=== PATIENT | female | born 1940 | race Caucasian/White ===

== ENCOUNTER 2017-03-22 10:28 | Emergency (ER) | payer MEDICARE, BC ==
[2017-03-22] MEDS ORDERED: SODIUM CHLORIDE 0.9% 1,000 ML IV STA (11:09)
--- NOTE | 2017-03-22 11:11 | ED ---
Chest Pain HPI - General Chief Complaint: Chest Pain Stated Complaint: chest pain Time Seen by Provider: 03/22/17 10:50 Source: patient, RN notes reviewed Mode of arrival: ambulatory Limitations: language barrier - History of Present Illness Initial Comments: This is a 76-year-old female who has a history of pneumonia but no history of heart or lung disease that she is aware of who presents today with complaints of about 2 weeks of intermittent left-sided chest pain. She had pain last night there was sharp and radiated to her left neck with some nausea at this time she has no pain other than over her left chest wall she denies any cough fevers chills sweats MD Complaint: chest pain - Related Data Previous Rx's Medication Instructions Recorded Levofloxacin [Levaquin] 750 mg PO DAILY #7 tab 11/29/15 Metoprolol Tartrate 25 mg PO BID #60 tab 11/29/15 Ibuprofen [Motrin] 600 mg PO Q6HR PRN #20 tab 03/22/17 Allergies Allergy/AdvReac Type Severity Reaction Status Date / Time No Known Allergies Allergy Verified 03/22/17 10:35 Review of Systems ROS Statement: Those systems with pertinent positive or pertinent negative responses have been documented in the HPI. ROS Other: All systems not noted in ROS Statement are negative. EKG Findings - EKG Results: EKG: interpreted by GINETTE, sinus rhythm (Sinus rhythm of 82. Interval 154 QRS duration 128 daily since QTC of 412/41Bundle-branch block old septal changes) Past Medical History Past Medical History: Hearing Disorder / Deafness History of Any Multi-Drug Resistant Organisms: None Reported Additional Past Surgical History / Comment(s): "STOMACH SURGERY" Past Psychological History: Anxiety Smoking Status: Never smoker Past Alcohol Use History: None Reported Past Drug Use History: None Reported General Exam - General Exam Comments Initial Comments: This is a well-developed well-nourished awake alert oriented 3 female she is hard of hearing. Limitations: language barrier General appearance: alert, in no apparent distress Head exam: Present: atraumatic, normocephalic, normal inspection Eye exam: Present: normal appearance, PERRL, EOMI. Absent: scleral icterus, conjunctival injection, periorbital swelling ENT exam: Present: normal exam, mucous membranes moist Neck exam: Present: normal inspection. Absent: tenderness, meningismus, lymphadenopathy Respiratory exam: Present: normal lung sounds bilaterally, wheezes, chest wall tenderness, decreased breath sounds. Absent: respiratory distress, rales, rhonchi, stridor Cardiovascular Exam: Present: regular rate, normal rhythm, normal heart sounds. Absent: systolic murmur, diastolic murmur, rubs, gallop, clicks GI/Abdominal exam: Present: soft, normal bowel sounds. Absent: distended, tenderness, guarding, rebound, rigid Extremities exam: Present: normal inspection, full ROM, normal capillary refill. Absent: tenderness, pedal edema, joint swelling, calf tenderness Back exam: Present: normal inspection Neurological exam: Present: alert, oriented X3, CN II-XII intact Psychiatric exam: Present: normal affect, normal mood Skin exam: Present: warm, dry, intact, normal color. Absent: rash Course Vital Signs 03/22/17 03/22/17 03/22/17 10:33 10:56 12:38 Temperature 98.1 F Pulse Rate 85 83 83 Respiratory 20 18 Rate Blood Pressure 202/92 203/91 O2 Sat by Pulse 99 99 Oximetry 03/22/17 03/22/17 12:48 12:59 Temperature Pulse Rate 71 83 Respiratory 20 Rate Blood Pressure 165/74 O2 Sat by Pulse 98 Oximetry Chest Pain MDM - MDM Review the x-ray shows no acute findings. Patient and I discussed the findings the presentation is consistent with chest wall pain she'll be discharged with follow-up with her doctor and return when necessary Disposition Clinical Impression: Chest wall syndrome, Costalchondritis Disposition: HOME SELF-CARE Condition: Good Instructions: Costochondritis (ED) Prescriptions: Ibuprofen [Motrin] 600 mg PO Q6HR PRN #20 tab PRN Reason: Pain Referrals: None,Stated [Primary Care Provider] - 1-2 days
[2017-03-22] MEDS ORDERED: IPRATROPIUM-ALBUTEROL 3 ML NEB INHALATION STA (11:12)
[2017-03-22 12:26] LABS: Basophils % (A) 1 %; CH 29.5; CHCM 31.9; Eosinophils # (A) 0.1 k/uL (0-0.7); Eosinophils % (A) 2 %; HCT 38.1 % (34.0-46.0); HDW 2.22; HGB 12.4 gm/dL (11.4-16.0); Luc # (Auto) 0.07; Luc % (Auto) 1; Lymphocytes # (A) 0.8 k/uL (1.0-4.8); Lymphocytes % (A) 15 %; MCH 30.2 pg (25.0-35.0); MCHC 32.5 g/dL (31.0-37.0); MCV 92.9 fL (80.0-100.0); Monocytes # (A) 0.3 k/uL (0-1.0); Monocytes % (A) 6 %; Neutrophils # (A) 3.9 k/uL (1.3-7.7); Neutrophils % (A) 75 %; RDW 13.2 % (11.5-15.5); WBC 5.2 k/uL (3.8-10.6); WBC (Perox) 5.21
[2017-03-22 12:42] LABS: Partial Thromboplastin Time 23.9 sec (22.0-30.0); Prothrombin Time 10.4 sec (9.0-12.0)
[2017-03-22 12:46] LABS: ALT 23 U/L (9-52); AST 20 U/L (14-36); Alkaline Phosphatase 86 U/L (38-126); Amylase 56 U/L (30-110); Anion Gap 7 mmol/L; Blood Urea Nitrogen 15 mg/dL (7-17); Carbon Dioxide 26 mmol/L (22-30); Chloride 106 mmol/L (98-107); Glucose 101 mg/dL (74-99); Magnesium 1.8 mg/dL (1.6-2.3); Non-African American GFR(MDRD) >60 (>60 ml/min/1.73 sqM); Sodium 139 mmol/L (137-145); Total Bilirubin 0.5 mg/dL (0.2-1.3); Total Protein 6.4 g/dL (6.3-8.2)
--- NOTE | 2017-03-22 12:51 | XR ---
EXAMINATION TYPE: XR chest 2V DATE OF EXAM: 03/22/2017 12:33 PM COMPARISON: 11/29/2015 INDICATION: Pneumonia TECHNIQUE: Frontal and lateral views of the chest are obtained. FINDINGS: The heart size is mildly prominent. The pulmonary vasculature is normal. The lungs are clear. IMPRESSION: 1. Mild cardiomegaly
[2017-03-22 12:52] LABS: Creatine Kinase 41 U/L (30-135)
[2017-03-22 13:03] VITALS: PULSE 83
[2017-03-22 13:04] LABS: Creatine Kinase MB 0.6 ng/mL (0.0-2.4); Troponin I <0.012 ng/mL (0.000-0.034)
[2017-03-22 14:30] VITALS: BP 168/77; RESP 18; TEMP 98.2
== END 2017-03-22 14:36 | disposition home or self-care (01) ==
LOC: EC 10:28 → EEVIPCON 10:28 → EC 14:36
DX: M94.0 Chondrocostal junction syndrome [Tietze] (principal); M54.2 Cervicalgia; R11.0 Nausea
CPT/HCPCS: 36415; 71020; 80053; 82150; 82550; 82553; 83690; 83735; 83880; 84484; 85025; 85379; 85610; 85730; 93005; 94640; 96360; 96361; 99285

== ENCOUNTER 2019-08-10 08:55 | Emergency (ER) | payer MEDICARE, BC ==
[2019-08-10 09:14] VITALS: BP 151/73; PULSE 80; RESP 18; TEMP 97.9
--- NOTE | 2019-08-10 09:37 | ED ---
Wound/Laceration HPI - General Source: patient, RN notes reviewed, old records reviewed Mode of arrival: ambulatory Limitations: no limitations <Stefanie Herrera - Last Filed: 08/10/19 09:31> <Casey Lackey - Last Filed: 08/10/19 16:52> - General Chief Complaint: Wound/Laceration Stated Complaint: L Leg Laceration Time Seen by Provider: 08/10/19 09:16 - History of Present Illness Initial Comments: Patient is a 78-year-old female, with a history of extreme hard of hearing. She presents today for left lower extremity redness, drainage and concern for infection. Patient reports that she cut her leg personally one month ago, and then reinjured her leg this past Sunday and recovery. Patient reports she's had some drainage from the laceration site. Patient states that she has been applying antibiotic ointment. Patient states she does not have a primary care doctor. She believes that all of her vaccines are up-to-date. Patient denies any recent fever, chills, shortness of breath, chest pain, back pain, abdominal pain, nausea vomiting, numbness or tingling, dysuria or hematuria, constipation or diarrhea, headaches or visual changes, or any other current symptoms (Stefanie Herrera) - Related Data Previous Rx's Medication Instructions Recorded Mupirocin 2% Oint [Bactroban 2% 1 applic TOPICAL TID #60 gm 08/10/19 Oint] Ondansetron Odt [Zofran Odt] 4 mg PO Q8HR PRN #12 tab 08/10/19 Sulfamethox-Tmp 800-160Mg [Bactrim 1 tab PO Q12HR #20 tab 08/10/19 DS 800-160 mg] Allergies Allergy/AdvReac Type Severity Reaction Status Date / Time No Known Allergies Allergy Verified 08/10/19 09:46 Review of Systems ROS Other: All systems not noted in ROS Statement are negative. <Stefanie Herrera - Last Filed: 08/10/19 09:31> ROS Other: All systems not noted in ROS Statement are negative. <Casey Laceky - Last Filed: 08/10/19 16:52> ROS Statement: Those systems with pertinent positive or pertinent negative responses have been documented in the HPI. Past Medical History Past Medical History: Hearing Disorder / Deafness History of Any Multi-Drug Resistant Organisms: None Reported Additional Past Surgical History / Comment(s): "STOMACH SURGERY" Past Psychological History: Anxiety Smoking Status: Never smoker Past Alcohol Use History: None Reported Past Drug Use History: None Reported <Stefanie Herrera - Last Filed: 08/10/19 09:31> General Exam Limitations: no limitations General appearance: alert Head exam: Present: atraumatic, normocephalic, normal inspection Eye exam: Present: normal appearance, PERRL, EOMI. Absent: scleral icterus, conjunctival injection, periorbital swelling ENT exam: Present: normal exam, mucous membranes moist Neck exam: Present: normal inspection. Absent: tenderness, meningismus, lymphadenopathy Respiratory exam: Present: normal lung sounds bilaterally. Absent: respiratory distress, wheezes, rales, rhonchi, stridor Cardiovascular Exam: Present: regular rate, normal rhythm, normal heart sounds. Absent: systolic murmur, diastolic murmur, rubs, gallop, clicks GI/Abdominal exam: Present: soft, normal bowel sounds. Absent: distended, tenderness, guarding, rebound, rigid Extremities exam: Present: normal inspection, full ROM, normal capillary refill. Absent: tenderness, pedal edema, joint swelling, calf tenderness Left Knee exam: Present: normal inspection, full ROM Lower Leg exam: Present: full ROM. Absent: normal inspection ( is 2 small abrasions over the lower extremity, she has some drainage over the distal abrasion. Surrounding erythema around the anterior lower leg. Pulses normal 2+ dorsalis space and posterior tibial.. No significant swelling. No posterior Tenderness.) Ankle exam: Present: normal inspection, full ROM Foot/Toe exam: Present: normal inspection, full ROM Back exam: Present: normal inspection Neurological exam: Present: alert, oriented X3, CN II-XII intact Psychiatric exam: Present: normal affect, normal mood Skin exam: Present: warm, dry, intact, normal color. Absent: rash <Stefanie Herrera - Last Filed: 08/10/19 09:31> - General Exam Comments Initial Comments: This is a 78-year-old female. Alert and oriented 3. Patient is extremely hard of hearing. Pleasant and Laughing and joking. (Stefanie Herrera) Course <Casey Lackey - Last Filed: 08/10/19 16:52> Vital Signs 08/10/19 09:09 Temperature 97.9 F Pulse Rate 80 Respiratory 18 Rate Blood Pressure 151/73 O2 Sat by Pulse 92 L Oximetry - Reevaluation(s) Reevaluation #1: 08/10/19 16:51 PA supervision: I proceed evaluate this presentation and do agree with the assessment and plan. (Casey Lackey) Medical Decision Making <Stefanie Herrera - Last Filed: 08/10/19 09:31> - Medical Decision Making Patient's a pleasant 78-year-old female, presents today for concern for a laceration over her left lower leg. Patient reports that she cut herself on a block on Sunday. Patient reports that she's noticed some drainage from the laceration. Patient states that she's had no recent antibiotics. She states that she's been putting mupirocin over this with some improvement but was worried because she does have continued redness around the 2 lacerations. Patient at this time states her vaccines are up-to-date. She does have some superficial cellulitis. Aerobic wound culture was obtained from some drainage. I discussed putting the Patient on antibiotics and close follow-up with primary care physician. Discussed wound care. (Stefanie Herrera) Disposition Is patient prescribed a controlled substance at d/c from ED?: No Time of Disposition: 09:34 <Stefanie Herrera - Last Filed: 08/10/19 09:31> <Casey Lackey - Last Filed: 08/10/19 16:52> Clinical Impression: Left leg cellulitis, Non-healing wound Disposition: HOME SELF-CARE Condition: Good Instructions (If sedation given, give patient instructions): Cellulitis (ED) Additional Instructions: Please use medication as discussed. Change the dressing every day. Try to keep the area clean and dry. Allow the area to get some air and dry out occasionally to help it heal. Please follow up with family doctor if symptoms have not improved over the next two days. Please return to the emergency room if your symptoms increase or worsen or for any other concerns. Prescriptions: Sulfamethox-Tmp 800-160Mg [Bactrim DS 800-160 mg] 1 tab PO Q12HR #20 tab Mupirocin 2% Oint [Bactroban 2% Oint] 1 applic TOPICAL TID #60 gm Ondansetron Odt [Zofran Odt] 4 mg PO Q8HR PRN #12 tab PRN Reason: Nausea Referrals: None,Stated [Primary Care Provider] - 1-2 days Bruna Murphy MD [REFERRING] - 1-2 days Leola Mcginnis MD [STAFF PHYSICIAN] - 1-2 days
== END 2019-08-10 09:50 | disposition home or self-care (01) ==
LOC: EC 08:55
DX: L03.116 Cellulitis of left lower limb (principal); S81.812A Laceration without foreign body, left lower leg, initial encounter; H91.90 Unspecified hearing loss, unspecified ear; X78.9XXA Intentional self-harm by unspecified sharp object, initial encounter
CPT/HCPCS: 87070; 87205; 99283

== ENCOUNTER 2019-09-01 08:48 | Emergency (ER) | payer MEDICARE, BC ==
[2019-09-01 08:58] VITALS: BP 157/104; PULSE 88; RESP 17; TEMP 97.6
[2019-09-01] MEDS ORDERED: diphenhydrAMINE 50 MG CAP PO STA (09:29)
[2019-09-01] MEDS ORDERED: predniSONE 50 MG TAB PO STA (09:29)
--- NOTE | 2019-09-01 09:32 | ED ---
Skin/Abscess/FB HPI - General Chief complaint: Skin/Abscess/Foreign Body Stated complaint: rash Time Seen by Provider: 09/01/19 09:04 Source: patient, RN notes reviewed Mode of arrival: ambulatory Limitations: no limitations - History of Present Illness Initial comments: 78-year-old female presents emergency from chief complaint of facial rash. Patient states this started after using some Silvadene cream on her leg. Patient states that is very itchy, dry nature. Patient denies putting any facial cream on other then some hydrocortisone. Patient states that she has no other areas of the rash. Patient states she was placed on Silvadene for infection to her left leg. Patient denies fevers, chills no difficulty breathing" the swelling. - Related Data Home Medications Medication Instructions Recorded Confirmed Ciprofloxacin HCl [Cipro] 500 mg PO BID 09/01/19 09/01/19 Collagenase [Santyl] 1 applic TOPICAL DAILY 09/01/19 09/01/19 Previous Rx's Medication Instructions Recorded Mupirocin 2% Oint [Bactroban 2% 1 applic TOPICAL TID #60 gm 08/10/19 Oint] diphenhydrAMINE [Benadryl] 50 mg PO QID PRN #20 capsule 09/01/19 predniSONE 50 mg PO DAILY #4 tab 09/01/19 Allergies Allergy/AdvReac Type Severity Reaction Status Date / Time No Known Allergies Allergy Verified 09/01/19 09:22 Review of Systems ROS Statement: Those systems with pertinent positive or pertinent negative responses have been documented in the HPI. ROS Other: All systems not noted in ROS Statement are negative. Past Medical History Past Medical History: Hearing Disorder / Deafness History of Any Multi-Drug Resistant Organisms: None Reported Additional Past Surgical History / Comment(s): "STOMACH SURGERY" Past Psychological History: Anxiety Smoking Status: Never smoker Past Alcohol Use History: None Reported Past Drug Use History: None Reported General Exam Limitations: no limitations General appearance: alert, in no apparent distress Head exam: Present: atraumatic, normocephalic, normal inspection Eye exam: Present: normal appearance, PERRL, EOMI. Absent: scleral icterus, conjunctival injection, periorbital swelling ENT exam: Present: normal exam, normal oropharynx, mucous membranes moist, TM's normal bilaterally Neck exam: Present: normal inspection, full ROM. Absent: tenderness, meningismus, lymphadenopathy Respiratory exam: Present: normal lung sounds bilaterally. Absent: respiratory distress, wheezes, rales, rhonchi, stridor Cardiovascular Exam: Present: regular rate, normal rhythm, normal heart sounds. Absent: systolic murmur, diastolic murmur, rubs, gallop, clicks Neurological exam: Present: alert Skin exam: Present: warm, dry, intact, normal color, rash (Dry flaky facial rash with underlying erythema no open lesions or sores remaining exam unremarkable) Course Vital Signs 09/01/19 08:54 Temperature 97.6 F Pulse Rate 88 Respiratory 17 Rate Blood Pressure 157/104 O2 Sat by Pulse 93 L Oximetry Medical Decision Making - Medical Decision Making Patient presents for facial rash was consistent with some form of dermatitis. This may be related to medication or exposure. Patient is advised to use moisturizing lotion including Mooney or renal steroid sand Benadryl.Patient advised follow-up with dermatology Disposition Clinical Impression: Dermatitis Disposition: HOME SELF-CARE Condition: Stable Instructions (If sedation given, give patient instructions): Dermatitis (ED) Additional Instructions: Use [id number] Eucerin or Aveeno lotion. Please return to the Emergency Department if symptoms worsen or any other concerns. Prescriptions: diphenhydrAMINE [Benadryl] 50 mg PO QID PRN #20 capsule PRN Reason: ithcing predniSONE 50 mg PO DAILY #4 tab Is patient prescribed a controlled substance at d/c from ED?: No Referrals: Brian Purcell MD [Primary Care Provider] - 1-2 days Time of Disposition: 09:32
== END 2019-09-01 09:44 | disposition home or self-care (01) ==
LOC: EC 08:48
DX: L30.9 Dermatitis, unspecified (principal)
CPT/HCPCS: 99282; J7512

== ENCOUNTER 2020-04-21 09:12 | Emergency (ER) | payer MEDICARE, BC ==
[2020-04-21 09:20] VITALS: TEMP 97.9
[2020-04-21] MEDS ORDERED: KETOROLAC 60 MG/2 ML VIAL IM STA (09:36)
--- NOTE | 2020-04-21 09:47 | ED ---
Back Pain HPI - General Source: patient, RN notes reviewed Mode of arrival: ambulatory Limitations: no limitations <Juan Hamilton - Last Filed: 04/21/20 11:33> <Casey Lackey - Last Filed: 04/21/20 15:39> - General Chief Complaint: Back Pain/Injury Stated Complaint: back pain Time Seen by Provider: 04/21/20 09:26 - History of Present Illness Initial Comments: 79-year-old female presents emergency Department with chief complaint of low back pain. She states she has intermittent low back pain that feels like it catches. Patient states that it's in her left lower lumbar region. She states that he has to help with. Patient states last night she had a lot of pain but states it's on his bed this morning. She has no symptoms into her lower extremities denies any abdominal pain, chest pain or upper back pain. Patient states that she is supposed to be on blood pressure medication but is not on it currently. Patient denies any abdominal complaints or dysuria no hematuria no fevers or chills. (Juan Hamilton) - Related Data Home Medications Medication Instructions Recorded Confirmed Acetaminophen Tab [Tylenol Tab] 1,000 mg PO Q8HR PRN 04/21/20 04/21/20 Aspirin EC [Ecotrin Low Dose] 81 mg PO DAILY 04/21/20 04/21/20 Previous Rx's Medication Instructions Recorded Lisinopril [Zestril] 10 mg PO DAILY #14 tab 04/21/20 Naproxen 500 mg PO BID #14 tablet 04/21/20 Allergies Allergy/AdvReac Type Severity Reaction Status Date / Time No Known Allergies Allergy Verified 04/21/20 10:51 Review of Systems ROS Other: All systems not noted in ROS Statement are negative. <Juan Hamilton - Last Filed: 04/21/20 11:33> ROS Other: All systems not noted in ROS Statement are negative. <Casey Lackey - Last Filed: 04/21/20 15:39> ROS Statement: Those systems with pertinent positive or pertinent negative responses have been documented in the HPI. Past Medical History Past Medical History: Hearing Disorder / Deafness, Hypertension History of Any Multi-Drug Resistant Organisms: None Reported Additional Past Surgical History / Comment(s): "STOMACH SURGERY" Past Psychological History: Anxiety Smoking Status: Never smoker Past Alcohol Use History: Occasional Past Drug Use History: None Reported <Juan Hamilton - Last Filed: 04/21/20 11:33> General Exam Limitations: no limitations General appearance: alert, in no apparent distress Head exam: Present: atraumatic, normocephalic, normal inspection Eye exam: Present: normal appearance, PERRL, EOMI. Absent: scleral icterus, conjunctival injection, periorbital swelling ENT exam: Present: normal exam, normal oropharynx, mucous membranes moist Neck exam: Present: normal inspection. Absent: tenderness, meningismus, lymphadenopathy Respiratory exam: Present: normal lung sounds bilaterally. Absent: respiratory distress, wheezes, rales, rhonchi, stridor Cardiovascular Exam: Present: regular rate, normal rhythm, normal heart sounds. Absent: systolic murmur, diastolic murmur, rubs, gallop, clicks GI/Abdominal exam: Present: soft, normal bowel sounds. Absent: distended, tenderness, guarding, rebound, rigid Extremities exam: Present: other (Lower extremity strength equal bilaterally neurovascular intact equal color equal warmth) Back exam: Present: full ROM, tenderness (Mild tenderness left lower lumbar), paraspinal tenderness. Absent: vertebral tenderness Neurological exam: Present: alert, oriented X3, CN II-XII intact Skin exam: Present: warm, dry, intact, normal color. Absent: rash <Juan Hamilton - Last Filed: 04/21/20 11:33> Course <Casey Lackey - Last Filed: 04/21/20 15:39> Vital Signs 04/21/20 04/21/20 09:16 11:24 Temperature 97.9 F Pulse Rate 94 62 Respiratory 18 16 Rate Blood Pressure 191/101 178/98 O2 Sat by Pulse 99 100 Oximetry - Reevaluation(s) Reevaluation #1: 04/21/20 15:39 PA supervision: I did personally evaluate this case patient percent with complaints of back pain it was also noted have elevated blood pressure patient imaging study showed degenerative joint disease no acute findings patient will be discharged with instruction follow-up with her doctor for reevaluation. (Casey Lackey) Medical Decision Making <Juan Hamilton - Last Filed: 04/21/20 11:33> - Medical Decision Making 79-year-old female presented for low back pain. This is muscle skeletal nature this is not acute back pain this is been ongoing. Patient has no abdominal pain. Blood pressure is elevated secondary to not taking medications. Patient's blood pressure is improved after oral medications. Patient we discharged advised to have close follow-up in 24 hours return for any worsening symptoms. No red flag symptoms. Patient is in between. (Juan Hamilton) - Lab Data Lab Results 04/21/20 Range/Units 09:33 Urine Color Yellow Urine Appearance Clear (Clear) Urine pH 5.5 (5.0-8.0) Ur Specific [place] 1.016 (1.001-1.035) Urine Protein Negative (Negative) Urine Glucose (UA) Negative (Negative) Urine Ketones Negative (Negative) Urine Blood Trace H (Negative) Urine Nitrite Negative (Negative) Urine Bilirubin Negative (Negative) Urine Urobilinogen <2.0 (<2.0) mg/dL Ur Leukocyte Esterase Trace H (Negative) Urine RBC 1 (0-5) /hpf Urine WBC 1 (0-5) /hpf Ur Squamous Epith Cells 5 H (0-4) /hpf Urine Bacteria Rare H (None) /hpf Hyaline Casts 1 (0-2) /lpf Urine Mucus Rare H (None) /hpf Disposition Is patient prescribed a controlled substance at d/c from ED?: No Time of Disposition: 11:35 <Juan Hamilton - Last Filed: 04/21/20 11:33> <Casey Lackey - Last Filed: 04/21/20 15:39> Clinical Impression: Lumbar back pain, Hypertension Disposition: HOME SELF-CARE Condition: Stable Instructions (If sedation given, give patient instructions): Acute Low Back Pain (ED) Additional Instructions: Please return to the Emergency Department if symptoms worsen or any other concerns. Prescriptions: Naproxen 500 mg PO BID #14 tablet Lisinopril [Zestril] 10 mg PO DAILY #14 tab Referrals: None,Stated [Primary Care Provider] - 1-2 days Bruna Murphy MD [REFERRING] - 1-2 days
--- NOTE | 2020-04-21 09:58 | XR ---
EXAMINATION TYPE: XR lumbosacral spine min 4V DATE OF EXAM: 04/21/2020 CLINICAL HISTORY: pain COMPARISON: NONE TECHNIQUE: Frontal, lateral, and oblique images of the lumbar spine are obtained. FINDINGS: There are 5 lumbar type vertebral bodies identified. The lumbar spine shows satisfactory alignment without evidence of acute fracture or dislocation. Vertebral body heights are within normal limits. Moderate multilevel degenerative disc disease and spondylosis. The overlying soft tissue a ppears unremarkable. IMPRESSION: No acute fracture or dislocation is seen in the lumbar spine.ICD 10 NO FRACTURE, INITIAL EVALUATION
[2020-04-21 10:22] LABS: Appearance,Urine Clear (Clear); Bacteria,Urine Rare /hpf; Bilirubin,Urine Negative (Negative); Blood,Urine Trace (Negative); Color,Urine Yellow; Glucose,Urine (UA) Negative (Negative); Hyaline Casts,Urine 1 /lpf (0-2); Ketones,Urine Negative (Negative); Leukocyte Esterase,Urine Trace (Negative); Mucus,Urine Rare /hpf; Nitrite,Urine Negative (Negative); PH, Urine 5.5 (5.0-8.0); Protein,Urine Negative (Negative); RBC,Urine 1 /hpf (0-5); Specific Gravity,Urine 1.016 (1.001-1.035); Squamous Epithelial Cell,Urine 5 /hpf (0-4); Urobilinogen,Urine <2.0 mg/dL (<2.0); WBC,Urine 1 /hpf (0-5)
[2020-04-21] MEDS ORDERED: LISINOPRIL 10 MG TAB PO STA (10:33)
[2020-04-21 11:28] VITALS: BP 178/98; PULSE 62; RESP 16
== END 2020-04-21 11:55 | disposition home or self-care (01) ==
LOC: EC 09:12
DX: M47.816 Spondylosis without myelopathy or radiculopathy, lumbar region (principal); I10 Essential (primary) hypertension; Z79.82 Long term (current) use of aspirin
CPT/HCPCS: 81001; 72110; 99283; 96372; J1885

== ENCOUNTER 2022-05-28 10:07 | Emergency (ER) | payer MEDICARE, BC ==
[2022-05-28 10:27] VITALS: TEMP 97.6
[2022-05-28] MEDS ORDERED: CEPHALEXIN 500 MG CAP PO STA (10:36)
[2022-05-28] MEDS ORDERED: LORATADINE 10 MG TAB PO STA (10:36)
--- NOTE | 2022-05-28 10:59 | ED ---
General Adult HPI - General Chief complaint: Extremity Problem,Nontraumatic Stated complaint: Lt leg Wound/eyes swollen Time Seen by Provider: 05/28/22 10:29 Source: patient, family, RN notes reviewed, old records reviewed Mode of arrival: ambulatory Limitations: no limitations - History of Present Illness Initial comments: 81-year-old female presents for evaluation of erythema and swelling to the left anterior wei. Patient states that about 3 weeks ago she bumped her leg on a trailer hitch. She's had increased erythema with minimal pain. She had some swelling. No chest pain or dyspnea. No fevers. She had been applying mupirocin without significant improvement. Second complaint is of increased nasal congestion and bilateral eye irritation. She states that she does have history of hayfever and believes her symptoms are similar. No cough no difficulty breathing. - Related Data Home Medications Medication Instructions Recorded Confirmed Acetaminophen Tab [Tylenol Tab] 1,000 mg PO Q8HR PRN 04/21/20 04/21/20 Aspirin EC [Ecotrin Low Dose] 81 mg PO DAILY 04/21/20 04/21/20 Previous Rx's Medication Instructions Recorded Naproxen 500 mg PO BID #14 tablet 04/21/20 lisinopriL [Zestril] 10 mg PO DAILY #14 tab 04/21/20 Cephalexin [Keflex] 500 mg PO QID 10 Days #40 cap 05/28/22 Allergies Allergy/AdvReac Type Severity Reaction Status Date / Time No Known Allergies Allergy Verified 05/28/22 10:27 Review of Systems ROS Statement: Those systems with pertinent positive or pertinent negative responses have been documented in the HPI. ROS Other: All systems not noted in ROS Statement are negative. Past Medical History Past Medical History: Hearing Disorder / Deafness, Hypertension Additional Past Medical History / Comment(s): hard of hearing History of Any Multi-Drug Resistant Organisms: None Reported Additional Past Surgical History / Comment(s): "STOMACH SURGERY" Past Psychological History: Anxiety Past Alcohol Use History: Occasional Past Drug Use History: None Reported General Exam Limitations: no limitations General appearance: alert, in no apparent distress Head exam: Present: atraumatic, normocephalic Eye exam: Present: PERRL, EOMI, periorbital swelling (Soft, pink swelling, consistent with ALLERGIC) Neck exam: Present: normal inspection. Absent: tenderness, meningismus Respiratory exam: Present: normal lung sounds bilaterally. Absent: respiratory distress, wheezes Cardiovascular Exam: Present: regular rate, normal rhythm GI/Abdominal exam: Present: soft. Absent: distended, tenderness, guarding Extremities exam: Present: other (1 cm abrasion surrounded by erythema on the anterior left wei. There is some soft tissue swelling. No drainable abscess.) Neurological exam: Present: alert, oriented X3, CN II-XII intact. Absent: motor sensory deficit Psychiatric exam: Present: normal affect, normal mood Skin exam: Present: warm, dry, intact. Absent: cyanosis, diaphoretic Course Vital Signs 05/28/22 10:22 Temperature 97.6 F Pulse Rate 102 H Respiratory 18 Rate Blood Pressure 164/92 O2 Sat by Pulse 97 Oximetry Medical Decision Making - Medical Decision Making 81-year-old female with cellulitis left lower leg. No fever. Symptoms have been present for the past several weeks. I did initiate Keflex in the emergency department. She will be continued on Keflex as well as a topical mupirocin. She was also given a Claritin for some ALLERGIC eye swelling. Patient otherwise well-appearing. She should follow-up with her primary care physician. Return with worsening or changing symptoms. Disposition Clinical Impression: Cellulitis Disposition: HOME SELF-CARE Condition: Fair Instructions (If sedation given, give patient instructions): Cellulitis (ED) Prescriptions: Cephalexin [Keflex] 500 mg PO QID 10 Days #40 cap Is patient prescribed a controlled substance at d/c from ED?: No Referrals: Chucky Turner DO [Primary Care Provider] - 1-2 days Time of Disposition: 12:11
--- NOTE | 2022-05-28 11:37 | US ---
EXAMINATION TYPE: US venous doppler duplex LE LT DATE OF EXAM: 05/28/2022 11:04 AM COMPARISON: NONE CLINICAL HISTORY: swelling. SIDE PERFORMED: Left TECHNIQUE: The lower extremity deep venous system is examined utilizing real time linear array sonog walter with graded compression, doppler sonography and color-flow sonography. VESSELS IMAGED: Common Femoral Vein Deep Femoral Vein Greater Saphenous Vein * Femoral Vein Popliteal Vein Small Saphenous Vein * Proximal Calf Veins (* superficial vessels) Technically difficult, large body habitus. Left Leg: Negative for DVT IMPRESSION: 1. Left lower extremity ultrasound negative for deep venous thrombosis.
[2022-05-28 12:21] VITALS: BP 178/106; PULSE 94; RESP 20
== END 2022-05-28 12:21 | disposition home or self-care (01) ==
LOC: EC 10:07
DX: S80.812A Abrasion, left lower leg, initial encounter (principal); L03.116 Cellulitis of left lower limb; I10 Essential (primary) hypertension; W22.8XXA Striking against or struck by other objects, initial encounter
CPT/HCPCS: 99283

== ENCOUNTER → 2022-08-24 | Outpatient (CLI) | payer MEDICARE, BC ==
--- NOTE | 2022-08-24 17:47 | XR ---
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 There is mild diffuse silhouetting of the pulmonary vasculature arborization bilaterally and symmetri grisel, by a fine reticular pattern of increased density. These changes are consistent with a clinical diagnosis of interstitial phase pulmonary edema. The lungs are negative for evidence of atelectasis or definite consolidation. The pleural spaces are negative. The cardiac silhouette is moderately enlarged, similar in appearance to the prior study. The skeletal structures and soft tissues are negative for acute findings. IMPRESSION: Findings can correlate with a clinical diagnosis of interstitial phase cardiogenic pulmonary edema.
== END | disposition home or self-care (01) ==
LOC: RADXRMAIN 17:01
PROVIDERS: ATTEND Family Medicine
DX: I50.9 Heart failure, unspecified (principal)
CPT/HCPCS: 71046

== ENCOUNTER → 2022-11-06 | Outpatient (CLI) | payer MEDICARE, BC ==
[2022-11-06 15:11] LABS: ALT 12 U/L (8-44); AST 16 U/L (13-35); Chol/HDL Ratio 2.51 Ratio; LDL Cholesterol,Calculated 107.6 mg/dL (0.0-131.0); VLDL Calculation 17.02 mg/dL (5.00-40.00)
== END | disposition home or self-care (01) ==
LOC: LABWHC1 08:17
PROVIDERS: ATTEND Internal Medicine Cardiovascular Disease
DX: E78.2 Mixed hyperlipidemia (principal)
CPT/HCPCS: 36415; 80061; 84450; 84460

== ENCOUNTER → 2024-07-25 | Outpatient (CLI) | payer MEDICARE, BC ==
[2024-07-25 15:26] LABS: HCT 33.1 % (37.2-46.3); MCH 27.2 pg (27.0-32.0); MCHC 30.2 g/dL (32.0-37.0); MCV 89.9 FL (80.0-97.0); Mean Platelet Volume 11.8 FL (9.5-12.2); NRBC Per 100 WBC 0 X 10*3/uL (0.00-0.01); Platelet Count 284 X 10*3/uL (140-440); RBC 3.68 X 10*6/uL (4.10-5.20); RDW 14.1 % (11.5-14.5); WBC 6.58 X 10*3/uL (4.50-10.00)
[2024-07-25 16:05] LABS: Blood Urea Nitrogen 29.9 mg/dL (9.0-27.0); Carbon Dioxide 25.9 mmol/L (21.6-31.8); Chloride 103 mmol/L (96-109); Potassium 4.9 mmol/L (3.5-5.5); Sodium 139 mmol/L (135-145)
== END | disposition home or self-care (01) ==
LOC: LABPAT 10:43
PROVIDERS: ATTEND Internal Medicine Cardiovascular Disease
DX: Z01.818 Encounter for other preprocedural examination
CPT/HCPCS: 80051; 82565; 84520; 85027

== ENCOUNTER 2024-08-05 05:41 | Day surgery (SDC) | payer MEDICARE, BC ==
[2024-08-05] MEDS ORDERED: HEPARIN SODIUM,PORCINE (1 ML) 2,500 UNIT in SODIUM CHLORIDE 0.9% 250 ML IRRIGATION PRN (05:59)
[2024-08-05] MEDS ORDERED: NITROGLYCERIN SL TABS 0.4 MG TAB SUBLINGUAL PRN (05:59)
[2024-08-05] MEDS ORDERED: ALPRAZolam 0.25 MG TAB PO PRN (05:59)
[2024-08-05] MEDS ORDERED: MIDAZOLAM 2 MG/2 ML VIAL IV PRN (05:59)
[2024-08-05] MEDS ORDERED: BENZOCAINE SPRAY 1 CAN TOPICAL PRN (05:59)
[2024-08-05] MEDS ORDERED: HEPARIN SODIUM,PORCINE 10,000 UNIT in SODIUM CHLORIDE 0.9% 1,000 ML IRRIGATION PRN (05:59)
[2024-08-05] MEDS ORDERED: ALPRAZolam 0.5 MG TAB PO PRN (05:59)
[2024-08-05] MEDS ORDERED: fentaNYL (PF) 50 MCG/ML 5 ML AMP IVP PRN (05:59)
[2024-08-05 06:26] VITALS: TEMP 97.8
[2024-08-05] MEDS: ACETAMINOPHEN TAB 325 MG TAB PO STA (06:32)
[2024-08-05] MEDS: ASPIRIN 325 MG TAB PO STA (06:33)
[2024-08-05] MEDS: SODIUM CHLORIDE 0.9% 1,000 ML in EMPTY BAG 1 BAG IV SCH (06:36)
[2024-08-05] MEDS: ISOSORBIDE MONONITRATE ER 30 MG TAB.ER.24H PO SCH (07:04)
[2024-08-05] MEDS: LOSARTAN 25 MG TAB PO SCH (07:04)
[2024-08-05] MEDS: METOPROLOL SUCCINATE (ER) 25 MG TAB.ER.24H PO SCH (07:04)
[2024-08-05] MEDS: IV FLUID CONTINUATION 1,000 ML IV ONE (07:25)
[2024-08-05] MEDS: BENZOCAINE SPRAY 1 CAN TOPICAL ONE (07:46)
[2024-08-05] MEDS: fentaNYL (PF) 50 MCG/ML 2 ML AMP IVP ONE (07:48)
[2024-08-05] MEDS: MIDAZOLAM 2 MG/2 ML VIAL IVP ONE (07:48)
[2024-08-05] MEDS: LIDOCAINE 1% INJ 10MG/ML (20 ML MDV) SQ ONE (08:00)
[2024-08-05] MEDS: IOPAMIDOL-370 100ML BTL INJ ONE (08:28)
--- NOTE | 2024-08-05 09:17 | ECHOT ---
TRANSESOPHAGEAL ECHOCARDIOGRAM INDICATION: Mitral and aortic regurgitation in a patient with shortness of breath with activity and new onset congestive heart failure. PROCEDURE NOTE: After obtaining informed consent, transesophageal echocardiogram was performed in left lateral position using an Omniplane probe. Local and IV sedation were obtained using Xylocaine spray, and Versed. The patient tolerated the procedure well without any obvious immediate complications. Total sedation time was 10 minutes. FINDINGS: Left ventricle has normal size and systolic function with an ejection fraction of 50%. Left atrium appears enlarged. Right atrium and right ventricle seem within normal limits. Mitral valve appears anatomically normal. There is mild to moderate central mitral regurgitation noted. Aortic valve shows mild aortic regurgitation. Ascending aorta appears mildly dilated measuring 3.9 cm. There is mild tricuspid regurgitation noted. There is no evidence of [id number] shunt by color-flow Doppler or right-to- left shunt by agitated saline contrast study. CONCLUSIONS: Normal LV systolic function, mild to moderate mitral regurgitation. PLAN: The patient will undergo cardiac catheterization to rule out significant obstructive CAD. MMODL / IJN: [id number] /
--- NOTE | 2024-08-05 09:26 | CC ---
CARDIAC CATHETERIZATION REPORT INDICATION: Cardiomyopathy with congestive heart failure. PROCEDURE NOTE: After obtaining informed consent, left heart catheterization and coronary angiogram were performed via the right femoral artery using standard Moris catheters. The patient tolerated the procedure well without any obvious immediate complications. A femoral angiogram was performed and manual hemostasis will be obtained. The patient received moderate conscious sedation. Total sedation time was 29 minutes. I initially obtained attempted right radial cardiac catheterization, obtained right radial artery access. I was able to pass a wire, but could not advance the sheath easily. Hence I decided to proceed with the femoral catheterization maybe she has radial artery spasm. FINDINGS: 1. HEMODYNAMICS: Left ventricular end-diastolic pressure is 12 mm. There is no significant gradient across the aortic valve. 2. Left ventriculogram: Left ventriculogram is not performed. 3. ANGIOGRAPHIC DATA: a.Left main coronary artery is a normal-sized vessel and is free of stenosis. Divides into left anterior descending coronary artery and circumflex coronary artery. b.LAD shows mild nonobstructive disease as does the circumflex coronary artery. Right coronary artery is a large codominant vessel. The large caliber PDA has a 50% to 60% stenosis proximally. CONCLUSIONS: 50% to 60% stenosis involving the PDA. PLAN: I am going to have Dr. Dias, the on-call career resource specialist review the angiographic data and see if we need revascularization of the PDA. If not, we will treat her with optimal medical therapy. MMODL / IJN: [id number] /
[2024-08-05] MEDS ORDERED: RX INFO: IV CONTRAST WAS GIVEN 1 EACH MISC MISCELLANE PRN (10:27)
[2024-08-05] MEDS ORDERED: SODIUM CHLORIDE 0.9% 1,000 ML IV SCH (10:30)
[2024-08-05 14:15] VITALS: RESP 16
[2024-08-05 15:35] VITALS: BP 138/66; PULSE 78
== END 2024-08-05 16:08 | disposition home or self-care (01) ==
LOC: CATHCVL 05:41
PROVIDERS: ATTEND Internal Medicine Cardiovascular Disease
DX: I34.0 Nonrheumatic mitral (valve) insufficiency
CPT/HCPCS: 93312; 93320; 93325; 93458